=== PATIENT | male | born 1965 | race Caucasian/White ===

== ENCOUNTER 2018-03-12 09:25 | Outpatient (CLI) | payer OTHER ==
[2018-03-12] MEDS ORDERED: ISOVUE-370 76%-LOCM 1 ML ONE (12:42)
== END 2018-03-12 09:26 | disposition home or self-care (01) ==
LOC: BICCT 09:25
PROVIDERS: ATTEND Internal Medicine
DX: K63.89 Other specified diseases of intestine (principal)
CPT/HCPCS: 74177

== ENCOUNTER 2018-03-27 08:33 | Outpatient (CLI) | payer BC ==
[2018-03-27 09:41] LABS: #Eosinphils 0.1 thou/uL (0.0-0.7); #Lymphocytes 0.9 thou/uL (1.20-3.40); #Monocytes 0.3 thou/uL (0.11-0.59); #Neutrophils 2.2 thou/uL (1.40-6.50); %Eosinophils 2.8 % (0.0-10.0); %Lymphocytes 26.1 % (21.0-51.0); %Monocytes 9.4 % (0.0-10.0); %Neutrophils 60.7 % (42.0-75.0); Hemoglobin 15.7 g/dL (14.0-18.0); Mean Corpuscular HGB CONC 33.7 g/dL (32.0-36.0); Mean Corpuscular Hemoglobin 31.3 pg (27.0-31.0); Mean Platelet Volume 8.5 fL (7.4-10.4); Platelet Count 171 thou/uL (130-400); RBC Distribution Width 11.4 % (11.5-14.5); White Blood Cell (WBC) Count 3.6 thou/uL (4.8-10.8)
[2018-03-27 09:58] LABS: Hemoglobin A1c 5.1 % (4.0-6.0)
[2018-03-27 10:01] LABS: Anion Gap 9 mmol/L (10-20); BUN (Urea Nitrogen) 19 mg/dL (8.4-25.7); Calc. Creatinine Clearance 0 mL/min (70-130); Calcium 9.9 mg/dL (7.8-10.44); Carbon Dioxide 29 mmol/L (22-29); Chloride 104 mmol/L (98-107); Estimated GFR-MDRD 83; Glucose 106 mg/dL (70-105); Potassium 4.3 mmol/L (3.5-5.1); Sodium 138 mmol/L (136-145)
== END 2018-03-27 08:34 | disposition home or self-care (01) ==
LOC: LABBT 08:33
PROVIDERS: ATTEND Surgery
DX: Z01.812 Encounter for preprocedural laboratory examination (principal); D12.5 Benign neoplasm of sigmoid colon
CPT/HCPCS: 80048; 83036; 85025

== ENCOUNTER 2018-03-27 08:45 | Inpatient (IN) | payer BC ==
[2018-03-27 09:06] VITALS: BMI 19.8
[2018-04-03] MEDS ORDERED: Dexamethasone 4 mg/ml Vial ONE (08:15)
[2018-04-03] MEDS ORDERED: Midazolam HCl 2 mg/2 ml Vial ONE (08:15)
[2018-04-03] MEDS ORDERED: Fentanyl 100 MCG/2 ML VIAL ONE ×2 (08:15→09:51)
[2018-04-03] MEDS ORDERED: Gabapentin 300 MG CAP ONE (08:24)
[2018-04-03] MEDS ORDERED: CeleCOXIB 100 MG CAP ONE (08:24)
[2018-04-03] MEDS ORDERED: Sodium Chloride 0.9% 100 ML ONE (09:33)
[2018-04-03] MEDS ORDERED: cefOXitin 2 GM VIAL ONE ×2 (09:33→11:37)
[2018-04-03] MEDS ORDERED: Dexmedetomidine 200 MCG/2 ML VIAL ONE (09:51)
[2018-04-03] MEDS ORDERED: Albumin 5% 500 ML ONE ×2 (09:59→11:37)
[2018-04-03] MEDS ORDERED: Bupivacaine HCl 0.5%/Epinephrine 1:200,000/PF 30 ml Vial ONE (11:57)
[2018-04-03] MEDS ORDERED: Promethazine HCl 25 MG/ML VIAL SLOW IVP PRN (12:18)
[2018-04-03] MEDS ORDERED: Promethazine HCl 25 MG/ML VIAL IM PRN ×2 (12:18→13:09)
[2018-04-03] MEDS ORDERED: Ondansetron HCl/PF 4 MG/2 ML Vial IVP PRN ×2 (12:18→13:09)
[2018-04-03] MEDS ORDERED: Meperidine HCl/PF 25 MG/ML VIAL ONE (12:21)
[2018-04-03] MEDS ORDERED: Dexamethasone 20 MG/5 ML VIAL ONE (12:32)
[2018-04-03] MEDS ORDERED: Ondansetron HCl/PF 4 MG/2 ML Vial ONE (12:32)
[2018-04-03] MEDS ORDERED: PROPOFOL 200 MG/20 ML VIAL ONE (12:32)
[2018-04-03] MEDS ORDERED: Lidocaine 1% PF 5 ML VIAL ONE (12:32)
[2018-04-03] MEDS ORDERED: Ketorolac Tromethamine 30 MG/ML VIAL ONE (12:32)
[2018-04-03] MEDS ORDERED: Glycopyrrolate 0.2 MG/ML 5 ML SYRINGE ONE (12:32)
[2018-04-03] MEDS ORDERED: hydrALAZINE 20 MG/ML VIAL SLOW IVP PRN (13:09)
[2018-04-03] MEDS ORDERED: Fentanyl 100 MCG/2 ML VIAL SLOW IVP PRN ×2 (13:09)
[2018-04-03] MEDS ORDERED: Ketorolac Tromethamine 30 MG/ML VIAL IVP PRN (13:09)
[2018-04-03] MEDS ORDERED: Acetaminophen 1,000 MG in Premix Bag 1 BAG IVPB SCH (14:00)
[2018-04-03] MEDS ORDERED: cefOXitin 2 GM in Sodium Chloride 0.9% 100 ML IVPB SCH (14:00)
[2018-04-03] MEDS ORDERED: D5 1/2 NS w/20 mEq KCL 1,000 ML ONE (14:07)
[2018-04-03] MEDS: D5 1/2 NS w/20 mEq KCL 1,000 ML IV SCH (15:30)
[2018-04-03] MEDS: Acetaminophen 1,000 MG in Premix Bag 1 BAG IVPB SCH (17:36)
[2018-04-03] MEDS: cefOXitin 2 GM in Sodium Chloride 0.9% 100 ML IVPB SCH (18:17)
[2018-04-03] MEDS: Famotidine 20 MG TAB PO SCH (20:41)
[2018-04-03] MEDS: Famotidine/PF 20 mg/2ml Vial SLOW IVP SCH (20:42)
[2018-04-04] MEDS: Acetaminophen 1,000 MG in Premix Bag 1 BAG IVPB SCH ×3 (00:11→12:35)
[2018-04-04] MEDS: cefOXitin 2 GM in Sodium Chloride 0.9% 100 ML IVPB SCH (01:48)
[2018-04-04] MEDS: D5 1/2 NS w/20 mEq KCL 1,000 ML IV SCH (05:55)
[2018-04-04 06:15] LABS: #Lymphocytes 0.9 thou/uL (1.20-3.40); #Monocytes 1.2 thou/uL (0.11-0.59); #Neutrophils 8.9 thou/uL (1.40-6.50); %Basophils 0.2 % (0.0-1.0); %Eosinophils 0.1 % (0.0-10.0); %Lymphocytes 8.5 % (21.0-51.0); %Monocytes 10.6 % (0.0-10.0); %Neutrophils 80.6 % (42.0-75.0); Hemoglobin 13.6 g/dL (14.0-18.0); Mean Corpuscular HGB CONC 33.8 g/dL (32.0-36.0); Mean Corpuscular Hemoglobin 31.5 pg (27.0-31.0); Mean Corpuscular Volume 93.3 fL (78.0-98.0); Platelet Count 130 thou/uL (130-400); RBC Distribution Width 11.4 % (11.5-14.5); White Blood Cell (WBC) Count 11.1 thou/uL (4.8-10.8)
[2018-04-04 06:33] LABS: Anion Gap 9 mmol/L (10-20); BUN (Urea Nitrogen) 12 mg/dL (8.4-25.7); Calc. Creatinine Clearance 90 mL/min (70-130); Calcium 9.3 mg/dL (7.8-10.44); Carbon Dioxide 28 mmol/L (22-29); Chloride 108 mmol/L (98-107); Estimated GFR-MDRD 86; Glucose 110 mg/dL (70-105); Potassium 4.5 mmol/L (3.5-5.1); Sodium 140 mmol/L (136-145)
[2018-04-04] MEDS: Famotidine/PF 20 mg/2ml Vial SLOW IVP SCH ×2 (10:02→21:40)
[2018-04-04] MEDS: Famotidine 20 MG TAB PO SCH ×2 (10:03→21:40)
[2018-04-04] MEDS ORDERED: Acetaminophen 1,000 MG in Premix Bag 1 BAG IVPB SCH (12:30)
[2018-04-04] MEDS ORDERED: D5 1/2 NS w/20 mEq KCL 1,000 ML IV SCH (13:14)
[2018-04-04] MEDS ORDERED: Enoxaparin Sodium 40 MG/0.4 ML SYRINGE SC SCH (21:00)
--- NOTE | 2018-04-04 21:20 | OP ---
DATE: 04/03/2018 PREOPERATIVE DIAGNOSIS: Sigmoid colon mass. POSTOPERATIVE DIAGNOSIS: Sigmoid colon mass. PROCEDURE: Laparoscopic sigmoid colectomy with low pelvic anastomosis. SURGEON: Jony Trimble M.D. ANESTHESIA: General. ESTIMATED BLOOD LOSS: 50 mL COMPLICATIONS: None. SPECIMEN: Left colon with stitch on distal staple line. 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 He underwent mechanical and an tibiotic bowel prep. TECHNIQUE: The patient underwent placement of tap blocks in the preop holding area and taken to the operating room and laid supine on the operating room supine on the table. After general anesthetic w as obtained, he was placed in lithotomy position. A Sharma catheter was placed. The abdomen and tyrell neum were prepped and draped in a sterile fashion. Left subcostal 5-mm Optiview trocar was placed in the usual fashion without injury and high flow pneumoperitoneum was obtained. Right lower quadrant 12-mm port was placed as well as a suprapubic 5-mm port, right upper quadrant 5 mm port, left lower q uadrant 5 murmur port. The patient was placed in Trendelenburg position. Small bowel was able to be mobilized out of the pelvis. His left colon was raised up and the peritoneum incised on the medial aspect. A medial to lateral dissection was performed. The left ureter was found and excluded from t he dissection. The inferior mesenteric artery was taken at its base using the LigaSure. Dissection was taken down in the mesorectal plane down to the upper rectum was mobilized. The lateral stalks we re taken with the LigaSure. The peritoneal reflection was then mobilized using the cautery. Circumf erential dissection of the upper rectum was performed. This was distal to the blue dyed colon in the low sigmoid. A laparoscopic stapling device was stapled transversely across the rectum in this area . The colon was able to be flipped up then and the left colon fully mobilized along the white line o f Toldt. The patient had a fairly-redundant sigmoid. Decision was made not to mobilize the splenic flexure. The 5-mm port site in the left lower quadrant was enlarged to 3 cm. A muscle-splitting inc ision was made and the Mau small wound retractor was placed. The colon was able to be brought up through this wound protector. Location in the descending colon was obtained for the anvil. The 31 E EA was brought in the sterile field. The anvil was placed through a colotomy made on the colon out p roximal on the antimesenteric surface of the colon. Reload of a laparoscopic stapler was used to gianluca se off the colotomy distally. This will be the upper anastomotic segment. The colon with the inferi or mesenteric artery and its included lymphatics was marked with a stitch on the distal and sent to p emiliana for final diagnosis. The colon was opened on the back table to reveal the polyp to be in the spe cimen. The proximal colon reaches down into the pelvis under no tension. The base for the EEA is br ought up through the anus and its sharp pin brought out on the antimesenteric surface of the colon be low, connected to the anvil from above. The stapler is tightened down into the green zone and fired. Insufflation through the anus via proctoscope reveals no obvious leakage. There was no evidence of ischemia. The anastomosis is not too tight. The pelvis is irrigated. There is no ongoing bleeding . All port sites were infiltrated using local anesthetic. All ports are removed under camera visual ization without bleeding. The 12-mm port site in the right lower quadrant was closed using GraNee ne edle 0 Vicryl tie. The muscle splitting incision in the left lower quadrants closed. The posterior and anterior fascia were closed using running PDS suture. Subcutaneous tissues were irrigated copiou sly using warm sterile solution. All incisions are closed using running 4-0 Monocryl and Dermabond. The patient was en route to recovery in stable condition. All instrument counts, needle counts, lap counts are correct.
[2018-04-05] MEDS: Famotidine 20 MG TAB PO SCH (09:02)
[2018-04-05] MEDS: Famotidine/PF 20 mg/2ml Vial SLOW IVP SCH (09:09)
--- NOTE | 2018-04-05 10:48 | DIS ---
DATE OF ADMISSION: 04/03/2018 DATE OF DISCHARGE: 04/05/2018 ADMISSION DIAGNOSIS: Colon mass. DISCHARGE DIAGNOSIS: Colon mass. PROCEDURES: Laparoscopic sigmoid colectomy by Dr. Trimble without complication. CONDITION AT DISCHARGE: Improved. STAFF: Dr. Jony Trimble. HOSPITAL COURSE: See hospital chart for details of hospitalization.
[2018-04-05 11:45] VITALS: BP 117/77; TEMP 97.6
== END 2018-04-05 13:12 | disposition home or self-care (01) | DRG 331 ==
LOC: SURG A 04-03 07:20 → SURG B 04-03 14:32
PROVIDERS: ADMIT Surgery; ATTEND Surgery
PROC: 0DTN4ZZ Resection of Sigmoid Colon, Percutaneous Endoscopic Approach (ICD-10-PCS; principal; 2018-04-03)
DX: D12.5 Benign neoplasm of sigmoid colon (principal); F41.9 Anxiety disorder, unspecified; Z82.49 Family history of ischemic heart disease and other diseases of the circulatory system; Z80.9 Family history of malignant neoplasm, unspecified
CPT/HCPCS: 36415; 36416; 80048; 85025; 88304; 88309; J0131; J0670; J0694; J1100; J1650; J1885; J2001; J2175; J2250; J2405; J2704; J3010; J7050; P9045; S0028

== ENCOUNTER 2025-07-02 14:29 | Outpatient (CLI) | payer OTHER | END 2025-07-02 14:30 | disposition home or self-care (01) | LOC: SCSMRI 14:29 | PROVIDERS: ATTEND Family Medicine Sports Medicine | DX: R42 Dizziness and giddiness (principal) | CPT/HCPCS: 70551 ==